=== PATIENT | male | born 1985 | race Caucasian/White ===

== ENCOUNTER 2017-03-31 08:20 | Emergency (ER) | payer MEDICAID ==
[~2017-03-31] VITALS: Ht 170.2 cm; Wt 92.8 kg
[2017-03-31 08:39] VITALS: BP 124/84
--- NOTE | 2017-03-31 08:45 | NUR ---
PT AMBULATED TO ER BED 12.
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
[2017-03-31] MEDS ORDERED: NEOMYCIN/POLYMYXIN/BACITRACIN 0.9 GM/1 PKT TP ONE (08:55)
--- NOTE | 2017-03-31 08:55 | NUR ---
Patient being evaluated by physician at bedside.
[2017-03-31] MEDS ORDERED: IBUPROFEN 600 MG TAB PO ONE (09:10)
[2017-03-31 09:26] VITALS: BP 122/80
--- NOTE | 2017-03-31 09:26 | NUR ---
Patient discharged with v/s stable. Written and verbal after care instructions given and explained. Patient alert, oriented and verbalized understanding of instructions. Ambulatory with steady gait. All questions addressed prior to discharge. ID band removed. Patient advised to follow up with PMD. Rx of AUGMENTIN 500MG AND NAPROSYN 500MG given. Patient educated on indication of medication including possible reaction and side effects. Opportunity to ask questions provided and answered.
== END 2017-03-31 09:26 | disposition home or self-care (01) ==
LOC: MED 08:20
DX: S81.851A Open bite, right lower leg, initial encounter (principal); W54.0XXA Bitten by dog, initial encounter; Y93.K1 Activity, walking an animal; Y92.096 Garden or yard of other non-institutional residence as the place of occurrence of the external cause; Y99.8 Other external cause status
CPT/HCPCS: 99283

== ENCOUNTER 2018-06-11 11:48 | Emergency (ER) | payer MEDICAID ==
[~2018-06-11] VITALS: Ht 170.2 cm; Wt 104.9 kg
[2018-06-11 11:54] VITALS: BP 127/76
[2018-06-11] MEDS ORDERED: BOWEL EVACUANT DRINK 4,000 ML PDS ONE (13:15)
[2018-06-11 13:26] VITALS: BP 124/70
== END 2018-06-11 13:26 | disposition home or self-care (01) ==
LOC: MED 11:48
DX: L03.011 Cellulitis of right finger (principal)
CPT/HCPCS: 99284

== ENCOUNTER 2018-09-21 11:14 | Emergency (ER) | payer MEDICAID ==
[~2018-09-21] VITALS: Ht 170.2 cm; Wt 90.7 kg
[2018-09-21 11:36] VITALS: BP 127/96
--- NOTE | 2018-09-21 11:42 | NUR ---
PT AMBULATED TO LOBBY AT THIS TIME, VSS.
--- NOTE | 2018-09-21 13:29 | NUR ---
Patient ambulated to bed 5 with family. RN evaluating patient at bedside.
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
[2018-09-21] MEDS ORDERED: KETOROLAC 15 MG/ML VIAL IM SCH (15:10)
[2018-09-21 15:26] VITALS: BP 125/89
--- NOTE | 2018-09-21 15:26 | NUR ---
Patient discharged with v/s stable. Written and verbal after care instructions given and explained. Patient alert, oriented and verbalized understanding of instructions. Ambulatory with steady gait. All questions addressed prior to discharge. ID band removed. Patient advised to follow up with PMD. Rx of TORADOL given. Patient educated on indication of medication including possible reaction and side effects. Opportunity to ask questions provided and answered.
== END 2018-09-21 15:26 | disposition home or self-care (01) ==
LOC: MED 11:14
DX: M79.671 Pain in right foot (principal)
CPT/HCPCS: 73630; 96372; 99283; J1885

== ENCOUNTER 2019-06-17 08:59 | Emergency (ER) | payer MEDICAID ==
[~2019-06-17] VITALS: Ht 172.7 cm; Wt 107.5 kg
[2019-06-17 09:06] VITALS: BP 148/59
--- NOTE | 2019-06-17 09:07 | NUR ---
PATIENT AMBULATED WITH STEADY GAIT TO BED 2.
--- NOTE | 2019-06-17 09:10 | NUR ---
33/M BIB SELF C/O PAIN BELOW R RIBCAGE X3 DAYS, WORSE WHEN TAKING A DEEP BREATH OR COUGHING. PT DENIES TRAUMA/INJURY TO THE AREA. DENIES N/V/D. O2 SAT RA 96%, NO LABORED BREATHING NOTED. LUNGS CLEAR BL; HR EVEN AND REGULAR. PATIENT STATES PAIN OF 8/10 AT THIS TIME.
--- NOTE | 2019-06-17 09:41 | NUR ---
Patient being evaluated by DR CHAVEZ at bedside.
[2019-06-17] MEDS ORDERED: KETOROLAC 60 MG/2 ML VIAL IM ONE ×2 (09:43→09:45)
[2019-06-17 10:30] VITALS: BP 148/59
== END 2019-06-17 10:30 | disposition home or self-care (01) ==
LOC: MED 08:59
DX: R07.89 Other chest pain (principal)
CPT/HCPCS: 96372; 99283; J1885

== ENCOUNTER 2020-06-17 18:27 | Emergency (ER) | payer MEDICAID ==
[~2020-06-17] VITALS: Ht 177.8 cm; Wt 99.8 kg
[2020-06-17 18:30] VITALS: BP 189/79
--- NOTE | 2020-06-17 18:36 | NUR ---
34 Y/O MALE C/O LEFT RIB PAIN S/P FALLING TODAY. PAIN IS 9/10, SHARP. PT HAS NOT MEDICATED FOR PAIN. NO LOC. NO OBVIOUS DEFORMITIES NOTED. SKIN INTACT. RESP EVEN AND UNLABORED. VSS. NO PMH NKA
[2020-06-17] MEDS ORDERED: KETOROLAC 60 MG/2 ML VIAL IM ONE (19:10)
--- NOTE | 2020-06-17 19:18 | NUR ---
PT TAKEN TO XRAY VIA W/C.
[2020-06-17 20:00] VITALS: BP 189/79
--- NOTE | 2020-06-17 20:00 | NUR ---
Patient discharged with v/s stable. Written and verbal after care instructions given and explained. Patient alert, oriented and verbalized understanding of instructions. Ambulatory with steady gait. All questions addressed prior to discharge. ID band removed. Patient advised to follow up with PMD. Rx of LIDODERM , NAPROXEN given. Patient educated on indication of medication including possible reaction and side effects. Opportunity to ask questions provided and answered.
== END 2020-06-17 20:00 | disposition home or self-care (01) ==
LOC: MED 18:27
DX: S20.20XA Contusion of thorax, unspecified, initial encounter (principal); X58.XXXA Exposure to other specified factors, initial encounter; Y93.K1 Activity, walking an animal; Y92.89 Other specified places as the place of occurrence of the external cause; Y99.8 Other external cause status
CPT/HCPCS: 71101; 96372; 99283; J1885

== ENCOUNTER 2021-07-06 22:30 | Emergency (ER) | payer OTHER, MEDICAID ==
--- NOTE | 2021-07-06 22:53 | NUR ---
patient informed admitting staff to go home, and dont want to be seen by a doctor PATIENT LEFT WITHOUT BEING SEEN BY DR. [email or web address]. NO FURTHER CARE PROVIDED FOR PATIENT.
== END 2021-07-06 22:53 | disposition left against medical advice (07) ==
LOC: MED 22:30
DX: Z53.21 Procedure and treatment not carried out due to patient leaving prior to being seen by health care provider (principal)

== ENCOUNTER 2024-04-05 16:48 | Emergency (ER) | payer MEDICAID, OTHER ==
[~2024-04-05] VITALS: Ht 167.6 cm; Wt 105.8 kg
[2024-04-05 16:54] VITALS: BP 130/96; PULSE 80; RESP 18; TEMP 98.5; O2SAT 96
[2024-04-05 18:15] VITALS: O2SAT 96
[2024-04-05 18:16] LABS: BASOPHILS % (AUTO) 0.4 % (0.0-2.0); EOSINOPHILS % (AUTO) 0.5 % (0.0-4.0); HEMATOCRIT 42.7 % (36-52); HEMOGLOBIN 14.8 g/dL (12.0-18.0); LYMPHOCYTES # (AUTO) 2.2 K/uL (2.0-11.5); MEAN CORPUSCULAR HEMOGLOBIN 30 pg (27-31); MEAN CORPUSCULAR HGB CONC 35 g/dL (33-37); MEAN CORPUSCULAR VOLUME 86.2 fL (80-94); MONOCYTES # (AUTO) 0.5 K/uL (0.8-1.0); NEUTROPHILS # (AUTO) 4.4 K/uL (1.8-7.7); NEUTROPHILS % (AUTO) 61.1 % (42.2-75.2); PLATELET COUNT (AUTO) 268 K/uL (140-450); RED BLOOD CELL COUNT(AUTO) 4.96 MIL/uL (4.20-6.10); RED CELL DISTRIBUTION WIDTH 12.9 % (11.6-13.7); WHITE BLOOD COUNT (AUTO) 7.1 K/uL (4.8-10.8)
[2024-04-05 18:20] LABS: ANION GAP 7.8 (8-16); CALCIUM 8.9 mg/dL (8.5-10.1); CARBON DIOXIDE 28.9 mmol/L (21-32); POTASSIUM 3.7 mmol/L (3.5-5.1)
[2024-04-05 18:22] LABS: INR 1.08 (0.8-1.2); PARTIAL THROMBOPLASTIN TIME 27.6 secs (22-35.6); PROTHROMBIN TIME 11.3 secs (10.8-13.4)
[2024-04-05 18:28] LABS: ALANINE AMINOTRANSFERASE 34 U/L (12-78); ALBUMIN 4.1 g/dL (3.4-5.0); ALKALINE PHOSPHATASE 114 U/L (50-136); ASPARTATE AMINOTRANSFERASE 23 U/L (15-37); BILIRUBIN,DIRECT 0.1 mg/dL (0.0-0.3); LIPASE 34 U/L (16-77); TOTAL BILIRUBIN 0.6 mg/dL (0.0-1.0); TOTAL PROTEIN, SERUM 7.8 g/dL (6.4-8.2)
[2024-04-05] MEDS: ACETAMINOPHEN EXTRA STRENGTH 500 MG TAB PO ONE (19:06)
[2024-04-05] MEDS: KETOROLAC 30 MG/ML VIAL IM ONE (19:08)
[2024-04-05 20:01] VITALS: O2SAT 96
[2024-04-05 22:10] VITALS: BP 134/83; PULSE 77; RESP 18; TEMP 98.5; O2SAT 97
== END 2024-04-05 22:10 | disposition home or self-care (01) ==
LOC: MED 16:48
DX: R07.9 Chest pain, unspecified (principal); R11.2 Nausea with vomiting, unspecified
CPT/HCPCS: 36415; 71045; 80048; 80076; 83690; 83880; 84484; 85025; 85610; 85730; 93005; 96372; 99285; J1885; Q0092